=== PATIENT | male | born 1975 | race Two or more races ===

== ENCOUNTER 2016-12-18 10:44 | Emergency (ER) | payer SELFPAY ==
[~2016-12-18] VITALS: Ht 165.1 cm; Wt 72.6 kg
[2016-12-18 11:53] LABS: Urine Bilirubin Negative (Negative); Urine Blood Negative /uL (Negative); Urine Color Yellow (Yellow); Urine Ketone Negative (Negative); Urine Nitrite Negative (Negative); Urine RBC <1 /hpf (0 - 3); Urine Urobilinogen Normal (Negative); Urine pH 5.5 (5.0-8.0)
[2016-12-18 12:00] LABS: Basophils # (auto) 0 uL; Basophils % (auto) 0.6 % (0.0-2.0); Eosinophils # (auto) 0 uL; Eosinophils % (auto) 0.3 % (0.0-7.0); Hematocrit 48.4 % (41.0-53.0); Hemoglobin 16.9 g/dL (13.5-17.5); Lymphocytes # (auto) 1.6 uL; Lymphocytes % (auto) 31.2 % (10.0-50.0); Mean Corpuscular Hemoglobin 30.8 pg (28.0-32.0); Mean Corpuscular Hgb Conc. 34.8 g/dL (32.0-36.0); Mean Corpuscular Volume 88.5 fL (80.0-100.0); Mean Platelet Volume 7.9 fL (7.4-10.4); Monocytes # (auto) 0.3 uL; Monocytes % (auto) 6.7 % (0.0-12.0); Neutrophils # (auto) 3.1 uL; Neutrophils % (auto) 61.2 % (37.0-80.0); Platelet Count (auto) 279 10^3/uL (140-450); White Blood Cell 5.1 10^3/uL (4.4-10.8)
[2016-12-18 12:19] LABS: Urine Glucose 4+ mg/dL (Normal)
[2016-12-18 12:37] LABS: Albumin 3.5 g/dL (3.4-5.0); Calcium 8.6 mg/dL (8.5-10.1); Potassium 4.2 mmol/L (3.5-5.1)
[2016-12-18 12:40] LABS: Bilirubin, Total 0.6 mg/dL (0.2-1.0); Total Protein 7.6 g/dL (6.4-8.2)
[2016-12-18] MEDS: SODIUM CHLORIDE 0.9% 1,000 ML IV ONE (12:56)
[2016-12-18] MEDS: InsuLIN REG 1unit/0.01ml Soln (100units/ml) ONE (12:56)
[2016-12-18] MEDS: cloNIDine HCL 0.1 MG TAB PO ONE (12:56)
[2016-12-18] MEDS: InsuLIN REG 1unit/0.01ml Soln (100units/ml) SC ONE (12:56)
[2016-12-18 13:41] VITALS: BP 136/94
[2016-12-18] MEDS ORDERED: InsuLIN REG 1unit/0.01ml Soln (100units/ml) IV ONE (14:15)
[2016-12-18] MEDS: InsuLIN REG 1unit/0.01ml Soln (100units/ml) IV ONE (14:23)
== END 2016-12-18 15:17 | disposition home or self-care (01) ==
LOC: ER 10:47
DX: E11.65 Type 2 diabetes mellitus with hyperglycemia (principal); I10 Essential (primary) hypertension; Z79.4 Long term (current) use of insulin
CPT/HCPCS: 36415; 80053; 81001; 82962; 85025; 96372; 96374; 99284; J1815; J7030